=== PATIENT | male | born 1980 ===

== ENCOUNTER → 2021-01-16 10:36 | Outpatient (CLI) | payer OTHER, SELFPAY ==
--- NOTE | ~2021-01-16 | US_ITS ---
US thyroid INDICATION: Nontoxic goiter TECHNIQUE: Real-time sonographic images of the thyroid gland were obtained. COMPARISON: No prior studies for comparison. FINDINGS: The right thyroid lobe measures 4.6 x 2.3 x 2 cm. The left thyroid lobe measures 4.2 x 2.1 x 1.5 cm. There is heterogeneous echotexture and echogenicity throughout the thyroid gland. No discr ete nodules identified. Normal vascular flow is present. IMPRESSION: 1. Heterogeneous thyroid without discrete nodule or abnormal vascularity. Reviewed, dictated and finalized at location A.
== END ==
PROVIDERS: PCP Family Medicine; Visit Provider Family Medicine
DX: E04.9 Nontoxic goiter, unspecified (principal)
CPT/HCPCS: 76536

== ENCOUNTER 2025-06-28 14:15 | Outpatient (CLI) | payer OTHER, SELFPAY ==
--- NOTE | ~2025-06-28 | US_ITS ---
EXAMINATION: US renal BI, 06/28/2025 14:19 [employer]BE BLOCK [employer]KER HISTORY: elevated serum creatinine Comparison: None Technique: Lee-scale and color Doppler images were obtained. Findings: KIDNEYS: Renal cortices intact, no solid masses, cysts or calculi, no hydronephrosis. Right Kidney: Right kidney measures 12.3 x 4.9 x 6 cm. Left Kidney: Left kidney 12.3 x 4.7 x 5.9 cm. Bladder: The bladder is unremarkable. . Impression: No acute abnormality. Reviewed, dictated and finalized at location P. E BLOCK MAKER Impression: No acute abnormality.
== END 2025-06-28 14:16 | disposition home or self-care (01) ==
PROVIDERS: PCP Family Medicine; Visit Provider Family Medicine
DX: R79.89 Other specified abnormal findings of blood chemistry (principal)
CPT/HCPCS: 76770

== ENCOUNTER 2025-07-12 12:11 | Outpatient (CLI) | payer OTHER, SELFPAY ==
--- NOTE | ~2025-07-12 | US_ITS ---
EXAMINATION: US retroperitoneal duplex ltd DATE: 07/12/2025 17:20 [employer]AN RESOURCE CONSULTANT INDICATION: Accelerated hypertension. TECHNIQUE: Sonographic imaging of the kidneys was performed with a 3.5 MHz transducer. Retroperitoneal duplex sonogram of the renal arteries also obtained. FINDINGS: No focal flow abnormalities are seen in the renal arteries on color Doppler. The peak systolic velocity ranges of the right and left renal arteries and aorta are 54 cm per second, 81 cm per second, and 107 cm per second, respectively. The velocities and renal to aortic ratios are within normal limits. IMPRESSION: 1. No Doppler evidence of renal artery stenosis. Reviewed, dictated and finalized at location O. N RESOURCE CONSULTANT
== END 2025-07-12 12:12 | disposition home or self-care (01) ==
LOC: MICIMG 12:12
PROVIDERS: PCP Family Medicine; Visit Provider Family Medicine
DX: R94.4 Abnormal results of kidney function studies (principal); I10 Essential (primary) hypertension
CPT/HCPCS: 93976